=== PATIENT | female | born 1985 | race Caucasian/White ===

== ENCOUNTER 2019-12-17 00:32 | Emergency (ER) | payer MEDICAID ==
[~2019-12-17] VITALS: Ht 157.5 cm; Wt 71.7 kg
[2019-12-17 00:33] VITALS: Ht 157.5 cm; Wt 71.7 kg
[2019-12-17 01:50] LABS: BASOPHIL % 0.5 % (0-2); PLATELET COUNT 321 x10^3mcL (130-400)
[2019-12-17 01:52] LABS: RED CELL DISTRIBUTION WIDTH 16.4 % (11.5-14.5)
[2019-12-17 02:13] LABS: CALCIUM 8.5 mg/dL (8.5-10.1); CARBON DIOXIDE 27.6 mmol/L (21-32); CHLORIDE SERUM 105 mmol/L (98-107); CREATININE SERUM 0.7 mg/dL (0.6-1.0); GFR1 > 60 mL/min; GLUCOSE SERUM 130 mg/dL (74-106); POTASSIUM SERUM 3.1 mmol/L (3.5-5.1); SODIUM SERUM 142 mmol/L (136-145)
[2019-12-17 02:17] LABS: ALBUMIN 3.6 g/dL (3.4-5.0); ALKALINE PHOSPHATASE 79 U/L (46-116); ALT/SGPT 22 U/L (14-59); AMYLASE 60 U/L (25-115); AST/SGOT 16 U/L (15-37); BILIRUBIN TOTAL 0.12 mg/dL (0.20-1.00); LIPASE 173 IU/L (73-393); TOTAL PROTEIN, SERUM 6.8 g/dL (6.4-8.2)
[2019-12-17 04:39] VITALS: BP 103/51
== END 2019-12-17 04:39 | disposition home or self-care (01) ==
LOC: ED 00:32
PROVIDERS: Emergency Medicine
DX: R10.11 Right upper quadrant pain (principal); R11.2 Nausea with vomiting, unspecified; R42 Dizziness and giddiness
CPT/HCPCS: J2270; J2405; J3010; Q0092

== ENCOUNTER 2020-05-25 20:57 | Emergency (ER) | payer MEDICAID ==
[~2020-05-25] VITALS: Ht 157.5 cm; Wt 76.7 kg
[2020-05-26 00:09] LABS: CARBON DIOXIDE 28.3 mmol/L (21-32); CHLORIDE SERUM 103 mmol/L (98-107); CREATININE SERUM 0.7 mg/dL (0.6-1.0); GFR1 > 60 mL/min; GLUCOSE SERUM 127 mg/dL (74-106); POTASSIUM SERUM 4.2 mmol/L (3.5-5.1); SODIUM SERUM 138 mmol/L (136-145)
[2020-05-26 00:14] LABS: ALBUMIN 4.2 g/dL (3.4-5.0); ALKALINE PHOSPHATASE 81 U/L (46-116); ALT/SGPT 34 U/L (14-59); AST/SGOT 38 U/L (15-37); BASOPHIL % 0.2 % (0-2); BILIRUBIN TOTAL 0.5 mg/dL (0.20-1.00); LIPASE 130 IU/L (73-393); PLATELET COUNT 346 x10^3mcL (130-400); TOTAL PROTEIN, SERUM 7.7 g/dL (6.4-8.2)
[2020-05-26 00:19] LABS: RED CELL DISTRIBUTION WIDTH 16.7 % (11.5-14.5)
[2020-05-26 00:52] VITALS: BP 114/64
== END 2020-05-26 00:52 | disposition left against medical advice (07) ==
LOC: ED 20:57
PROVIDERS: Emergency Medicine
DX: K80.50 Calculus of bile duct without cholangitis or cholecystitis without obstruction (principal)
CPT/HCPCS: J2270; J2405